=== PATIENT | female | born 1975 | race Caucasian/White ===

== ENCOUNTER 2018-08-13 05:46 | Observation (INO) | payer BC ==
[~2018-08-13] VITALS: Ht 160 cm; Wt 88.5 kg
--- NOTE | ~2018-08-13 | O ---
[facility] [place] [address] OPERATIVE REPORT Name: AUGUSTMay Room #: 150-11 [facility] M.R.#: [id number] Admission: 08/13/18 ������������������ Attend Phys: Jose Steward MD Discharge: ������������������ Date of : 79 Report #: [id number] THIS REPORT FOR: //name// CC: Lashon Steward DATE OF SERVICE: 08/13/2018 PREOPERATIVE DIAGNOSIS: Right hip osteoarthritis. POSTOPERATIVE DIAGNOSIS: Right hip osteoarthritis. PROCEDURE: Right total hip arthroplasty. SURGEON: Jose Steward MD. CONSTRUCTION SUPERVISOR: None. ANESTHESIA: LMA. IMPLANTS: [employer] size 52 R3 acetabular cup with one acetabular screw, size 9 high offset Synergy press-fit stem and a size 36+0 Oxinium head. ESTIMATED BLOOD LOSS: 100 mL. COMPLICATIONS: None. SPECIMENS: None. CONDITION UPON LEAVING THE OPERATING ROOM: Stable. INDICATIONS FOR PROCEDURE: The patient is a 43-year-old female with severe right hip osteoarthritis. She had failed conservative measures for this and after discussion with her, she elected for right total hip arthroplasty. DESCRIPTION OF PROCEDURE: Risks, benefits, alternatives, complications were discussed in detail with the patient including but not limited to risk of anesthesia, risk of damage to nerves, arteries, blood vessels, risk for infection, bleeding, risk for continued hip pain, leg length discrepancy, instability, and need for reoperation. Informed consent was obtained from the patient. Right hip was appropriately marked in the preoperative holding area. IV Ancef was given for preoperative antibiotics. She was brought to the operating room and placed in supine position on operating room table. General endotracheal anesthesia was induced without complication. She was then placed in the left lateral decubitus position with the right hip uppermost. Right hip and lower extremity were prepped and draped in normal sterile fashion. [address] [address] OPERATIVE REPORT Name: AUGUSTMay [facility] 150[facility]11 [id number] Admission: 08/13/18 ������������������ Attend Phys: Jose Steward MD Discharge: ������������������ Date of : 79 Report #: [id number] was performed properly identifying the patient and procedure as well as the instrumentation and implants. All in the operating room were in agreement. A standard posterior approach to the hip was made with 10 blade through the skin. Dissection was taken down to fascia with Bovie cautery and Nam elevator was used to clean the fascia. Fresh 10 blade was used to make a fascial incision. This was taken proximally and distally with curved Mo scissor. Charnley retractor was placed. Trochanteric bursa was taken down with Bovie cautery. Piriformis tendon was identified, tagged, and taken down with Bovie. Short external rotators were also taken down with Bovie cautery. Capsulotomy was made and capsule ends were tagged for later repair. The hip was dislocated and there was extensive osteoarthritic change of the femoral head. Femoral neck cut was made 1 cm proximal to lesser trochanter based on preoperative templating. The femoral head was removed. Deep acetabular retractors were placed. Labrum was removed sharply. Pulvinar was removed with Bovie cautery. Acetabulum was then sequentially reamed up to a size 52, at which point, there was excellent bleeding cancellous bone. A size 51 trial cup was placed, found to have a good fit. A final size 52 R3 acetabular cup was placed and seated. One acetabular screw was placed for backup fixation and a polyethylene liner for 36 head was placed. Attention was then turned to the femur. This was reamed and broached up to a size 9, at which point a size 9 broach was stable, was trialed with a high offset neck and a 36+0 head. Hip was reduced, taken through range of motion, found to be stable, found to have equal leg lengths. Hip was dislocated. Broach was removed and final size 9 high offset Synergy press-fit stem was placed. This was trialed again with a 36+0 head. Hip was reduced, taken through range of motion, found to be stable, found to have equal leg lengths. Hip was dislocated, one last time. The trial head was removed and a final size 36+0 Oxinium head was placed. Hip was reduced, taken through range of motion, found to be stable, found to have equal leg lengths. The wound was thoroughly irrigated with normal saline. A periarticular injection consisting of morphine, ropivacaine, epinephrine, Toradol was placed around the hip joint capsule. A gram of vancomycin was placed deep in the joint. The capsule and piriformis were repaired with 0 FiberWire. Fascia was closed with 0 Vicryl, skin was closed with 2-0 Vicryl, 3-0 Monocryl. Dermabond and a ALBA dressing was applied. The patient tolerated this procedure well and went to the recovery room under the care of anesthesia postoperatively. ��������������������������������������������� ���������������������������������������� By: ��������������������������������������������� [id number] Jose Steward MD /olinda
[~2018-08-13 05:46] MED LIST: PROZAC20 MG PO
[2018-08-13 06:46] VITALS: BP 104/59
--- NOTE | 2018-08-13 11:51 | NUR ---
ADM PT CAME IN FROM OR. PT ORIENTED TO ROOM. REASSESMENT DONE. WILL CONTINUE TO MONITOR.
[2018-08-13] MEDS ORDERED: HYDROCODON-ACE1 EAC7 PO (13:45)
[2018-08-13] MEDS ORDERED: MS CONTIN15 MG PO (13:46)
[2018-08-13] MEDS ORDERED: NEURONTIN 300300 M1 PO (13:47)
[2018-08-13 13:48] VITALS: BP 104/59
--- NOTE | 2018-08-13 13:49 | NUR ---
Pt is s/p THR this am and will be dcing home later today. Pt is needing a rwalker for home use. Script given to the in house Provider [facility] as they are in network with the pt's insurance plan and they can issue it to her immediately. Pt was indep and active prior to admission. She denies any other dc needs or concerns. She will be going to outpt therapy as arranged per [place]. No other cm interventions indicated.
== END 2018-08-13 15:45 | disposition home or self-care (01) ==
LOC: OR 05:46 → TBA 05:48 → PRE 07:00 → 2N 11:09 → OR 11:09 → PRE 13:00 → EDSTATUS 15:01 → OR 15:10 → ENTRNSPT 15:20 → OR 15:35 → EDTRNSPTSTS 15:42 → 2N 15:45
PROVIDERS: ADMIT Orthopaedic Surgery
DX: M16.11 Unilateral primary osteoarthritis, right hip (principal)
CPT/HCPCS: 50010; 50101; 50382; 50414; 53000; 53078; 53368; 54118; 56524; 56527; 56528; 56530; 57095; 57103; 62110; 62900; 70005